=== PATIENT | male | born 1950 | race Caucasian/White ===

== ENCOUNTER 2022-03-28 10:03 | Emergency (ER) | payer MEDICARE, SELFPAY ==
[2022-03-28 10:19] VITALS: BP 137/68; PULSE 74; RESP 16; TEMP 36.7; O2SAT 98
--- NOTE | 2022-03-28 10:21 | ED.DENTAL ---
HPI - Dental/Oral General Chief complaint: Dental/Oral Stated complaint: inflammation in side of cheek Time Seen by Provider: 03/28/22 10:28 Source: patient Mode of arrival: ambulatory History of Present Illness HPI Narrative: 71-year-old male presented for complaint of left lower gum swelling, onset 2 days. He endorses a numb sensation in the left side of the chin Since the onset. He reports a chronically broken tooth in the left lower area. He denies gum swelling, tenderness, drainage, nausea vomiting, diarrhea, fevers or chills. He also denies chest pain, neck pain, shoulder, back, or jaw pain. Denies difficulty swallowing. He is maintaining secretions. He is taking Motrin for pain. He smokes 1 pack per day. Scheduled with dentist in 4 days. MD Complaint: tooth pain Related Data Home Medications Medication Instructions Recorded Confirmed lisinopril 40 mg tablet 40 mg PO DAILY 03/28/22 03/28/22 simvastatin 20 mg tablet 20 mg PO DAILY 03/28/22 03/28/22 Allergies Allergy/AdvReac Type Severity Reaction Status Date / Time No Known Allergies Allergy Verified 03/28/22 10:21 Review of Systems Review of Systems: CONSTITUTIONAL: Denies body aches, fever, chills ENT: Denies rhinorrhea, congestion, sore throat, or otalgia. Reports left lower facial swelling CARDIOVASCULAR: Denies chest pain, palpitations RESPIRATORY: Denies cough or dyspnea. SKIN: Denies rash, itching, or wounds. MUSCULOSKELETAL: Denies myalgia. NEUROLOGIC: Denies headache, numbness, tingling, or weakness. FOR[facility]LY [facility] Family History Family History Mother Hypertension Father Family history of coronary artery disease Social History Social History Smoking status: Former smoker Smoking end date: 03/14/11 Alcohol intake: current Comments At time of signature, I have reviewed and agree with nursing past medical, surgical, social and family history unless otherwise noted. Please see nursing chart for further information. There is no relevant family history pertinent to the presenting complaint Exam Narrative: GENERAL: well appearing no acute distress. HEAD: Normocephalic, atraumatic. EYES: EOMI. No redness or drainage. Conjunctivae normal. ENT: Left chin mild swelling without erythema, minimal tenderness on exam; broken tooth at #20. No apparent gum swelling or tenderness. Mucous membranes pink and moist. TMs normal bilaterally. Throat normal. Uvula midline. NECK: Normal AROM. No lymphadenopathy. CHEST: No respiratory distress. Clear to auscultation. HEART: Regular rate and rhythm. No murmur appreciated. SKIN: Warm, dry, no rash. Normal skin turgor. NEURO: No focal deficits. Alert and oriented x3. Gait steady. Course Course Emergency Course: Patient is aware of diagnosis, understands and agrees to treatment plan. Anticipatory guidance given. Patient agrees to follow-up as directed and is aware of reasons to seek care at the emergency department. Portions of this record may have been created with voice recognition software Level of Care: Express Care Visit Vital Signs Vital signs: Vital Signs Temperature 98.1 F 03/28/22 10:19 Pulse Rate 74 03/28/22 10:19 Respiratory Rate 16 03/28/22 10:19 Blood Pressure 137/68 03/28/22 10:19 Pulse Oximetry 98 03/28/22 10:19 Oxygen Delivery Room Air 03/28/22 10:19 Temperature 98.1 F 03/28/22 10:19 Pulse Rate 74 03/28/22 10:19 Respiratory Rate 16 03/28/22 10:19 Blood Pressure 137/68 03/28/22 10:19 Pulse Oximetry 98 03/28/22 10:19 Oxygen Delivery Room Air 03/28/22 10:19 MDM - Dental/Oral MDM Narrative Medical decision making narrative: Patients pain and complaint coupled with physical findings are consistent with dentalgia at site of broken tooth. There are no focal signs of space occupying lesions that are compromising to the ai
== END 2022-03-28 10:40 | disposition home or self-care (01) ==
PROVIDERS: Emergency Provider Nurse Practitioner Family; PCP Family Medicine
DX: R20.2 Paresthesia of skin (principal)
CPT/HCPCS: 99213; G0463